=== PATIENT | female | born 1965 | race Caucasian/White ===

== ENCOUNTER 2016-10-01 19:22 | Emergency (ER) | payer SELFPAY ==
[2016-10-01 19:59] LABS: BASOPHILS 0.9 % (0.0-2.0); EOSINOPHILS 1.5 % (0-7); HEMATOCRIT 38.6 % (36.0-48.0); HEMOGLOBIN 12.9 g/dL (12-16); IMMATURE GRANULOCYTES 0.3 % (0-5); LYMPHOCYTES 40.4 % (15-50); MCH 33.9 pg (26.0-34.0); MCHC 33.4 g/dL (31.0-37.0); MCV 101.6 fL (80.0-100.0); MEAN PLATELET VOLUME 8.9 fL (7.4-10.4); MONOCYTES 6.4 % (2-11); NEUTROPHILS 50.5 % (40-80); PLATELET COUNT 288 10x3/uL (130-400); RDW 14.2 % (11.5-14.5); WBC 7.5 10x3/uL (4.8-10.8)
[2016-10-01 20:07] LABS: INR 1.05 (0.85-1.17); PROTIME 13.6 SECONDS (11.6-15.0)
[2016-10-01 20:11] LABS: ALBUMIN 3.9 g/dL (3.4-5.0); ALKALINE PHOSPHATASE 39 U/L (46-116); ALT (SGPT) 36 U/L (10-68); CALC OSMOLALITY 278 mosm/kg (275-300); CARBON DIOXIDE 24.5 mmol/L (21.0-32.0); CHLORIDE - SERUM 100 mmol/L (98-107); CREATININE - SERUM 0.8 mg/dL (0.6-1.3); GLUCOSE 163 mg/dL (74-106); POTASSIUM - SERUM 3.7 mmol/L (3.5-5.1); PROTEIN - SERUM 7.5 g/dL (6.4-8.2); SODIUM 137 mmol/L (136-145); UREA NITROGEN 15 mg/dL (7-18); eGFR NON AFRICAN AMERICAN 80 mL/min (90-120)
== END 2016-10-02 00:15 | disposition home or self-care (01) ==
LOC: D.ER 19:22
PROVIDERS: Family Medicine
DX: R10.9 Unspecified abdominal pain (principal)

== ENCOUNTER 2017-01-14 18:21 | Emergency (ER) | payer MEDICAID | END 2017-01-14 21:45 | disposition home or self-care (01) | LOC: D.ER 18:21 | DX: S61.452A Open bite of left hand, initial encounter (principal); S61.451A Open bite of right hand, initial encounter; W54.0XXA Bitten by dog, initial encounter; Y93.89 Activity, other specified; Y92.830 Public park as the place of occurrence of the external cause; F17.200 Nicotine dependence, unspecified, uncomplicated ==

== ENCOUNTER 2017-01-17 10:46 | Outpatient (CLI) | payer MEDICAID ==
[2017-01-17] MEDS ORDERED: PRAVACHOL40 MG PO (13:25)
[2017-01-17] MEDS ORDERED: SYNTHROID150 MCG PO (13:25)
[2017-01-17] MEDS ORDERED: XANAX1 MG PO (13:26)
[2017-01-17] MEDS ORDERED: CELEXA40 MG PO (13:26)
[2017-01-17] MEDS ORDERED: MOBIC7.5 MG PO (13:27)
[2017-01-17] MEDS ORDERED: ULTRAM50 MG PO (13:27)
[2017-01-17] MEDS ORDERED: CYCLOBENZAPRINE10 MG PO (13:27)
[2017-01-17 13:35] VITALS: BP 127/82
== END 2017-01-17 12:30 ==
LOC: D.OPS 10:46
DX: Z23 Encounter for immunization (principal); T14.8 Other injury of unspecified body region; W54.0XXA Bitten by dog, initial encounter

== ENCOUNTER 2017-01-21 10:48 | Outpatient (CLI) | payer MEDICAID ==
[~2017-01-21 10:48] MED LIST: CELEXA40 MG PO; CYCLOBENZAPRINE10 MG PO; MOBIC7.5 MG PO; PRAVACHOL40 MG PO; SYNTHROID150 MCG PO; ULTRAM50 MG PO; XANAX1 MG PO
--- NOTE | 2017-01-21 11:04 | NUR ---
PATIENT RECEIVED TO FLOOR FROM ADMISSIONS. A/O X3. NO SIGNS OF DISTRESS NOTED. CALL LIGHT IN REACH.
--- NOTE | 2017-01-21 11:22 | NUR ---
RABIES VACCINE ADMINISTERED PER ORDERS. WELL TOLERATED. D/C TEACHING PROVIDED. STATES UNDERSTANDING. AMBULATED OFF UNIT.
[2017-01-21 11:31] VITALS: Wt 122.5 kg
== END 2017-01-21 11:25 ==
LOC: D.OPS 10:48 → D.MS 10:50 → D.OPS 11:25
DX: Z23 Encounter for immunization (principal); T14.8 Other injury of unspecified body region; W54.0XXA Bitten by dog, initial encounter

== ENCOUNTER 2017-01-28 14:18 | Outpatient (CLI) | payer MEDICAID ==
[2017-01-21 11:31] VITALS: Ht 172.7 cm; Wt 123.0 kg
[~2017-01-28] VITALS: Ht 172.7 cm; Wt 123.0 kg
== END 2017-01-28 15:10 | disposition home or self-care (01) ==
LOC: D.OPS 14:18 → D.MS 14:19 → D.OPS 15:10
DX: Z23 Encounter for immunization (principal)

== ENCOUNTER 2017-08-16 21:35 | Emergency (ER) | payer MEDICAID | END 2017-08-16 23:42 | disposition home or self-care (01) | LOC: D.ER 21:35 | DX: S90.01XA Contusion of right ankle, initial encounter (principal); W19.XXXA Unspecified fall, initial encounter; Y93.89 Activity, other specified; Y92.019 Unspecified place in single-family (private) house as the place of occurrence of the external cause ==

== ENCOUNTER 2018-03-03 18:59 | Emergency (ER) | payer MEDICAID ==
[~2018-03-03] VITALS: Ht 172.7 cm; Wt 136.1 kg
[2018-03-03 19:09] VITALS: Ht 172.7 cm; Wt 136.1 kg
[2018-03-03] MEDS ORDERED: KLONOPIN1 MG (19:10)
[2018-03-03] MEDS ORDERED: ABILIFY2 MG (19:10)
[2018-03-03] MEDS ORDERED: BUPROPION HCL100 MG (19:10)
[2018-03-03] MEDS ORDERED: TORADOL10 MG PO (20:13)
[2018-03-03 20:25] VITALS: BP 132/69
== END 2018-03-03 20:27 | disposition home or self-care (01) ==
LOC: D.ER 18:59
DX: S40.022A Contusion of left upper arm, initial encounter (principal); W01.0XXA Fall on same level from slipping, tripping and stumbling without subsequent striking against object, initial encounter; Y93.89 Activity, other specified; Y92.019 Unspecified place in single-family (private) house as the place of occurrence of the external cause; F17.200 Nicotine dependence, unspecified, uncomplicated

== ENCOUNTER → 2019-03-04 08:16 | Outpatient (CLI) | payer MEDICAID ==
[~2019-03-04 08:16] MED LIST changes: +ABILIFY2 MG; +BUPROPION HCL100 MG; +KLONOPIN1 MG; +TORADOL10 MG PO
== END | disposition home or self-care (01) ==
LOC: D.NM 08:15
PROVIDERS: ATTEND Clinical Nurse Specialist Family Health
DX: T85.9XXA Unspecified complication of internal prosthetic device, implant and graft, initial encounter (principal); M25.572 Pain in left ankle and joints of left foot

== ENCOUNTER 2019-04-18 22:35 | Emergency (ER) | payer MEDICAID ==
[~2019-04-18] VITALS: Ht 172.7 cm; Wt 131.8 kg
[~2019-04-18 22:35] MED LIST changes: -ABILIFY2 MG; +ABILIFY2 MG PO; -SYNTHROID150 MCG PO; +SYNTHROID175 MCG PO
[2019-04-18 22:42] VITALS: Ht 172.7 cm; Wt 131.8 kg
[2019-04-18] MEDS ORDERED: ZITHROMAX TRI-500 MG PO (23:04)
[2019-04-18] MEDS ORDERED: ALBUTEROL SULF8.5 GM INH (23:04)
[2019-04-18] MEDS ORDERED: MUCINEX DM ER1 EAC1 PO (23:06)
[2019-04-19 00:14] VITALS: BP 117/66
[2019-05-21] MEDS ORDERED: KLONOPIN1 MG PO (08:50)
[2019-05-21] MEDS ORDERED: WELLBUTRIN SR150 MG PO (08:53)
[2019-05-21] MEDS ORDERED: LIPITOR40 MG PO (08:53)
[2019-05-21] MEDS ORDERED: VITAMIN D250000 UNIT PO (08:56)
== END 2019-04-19 00:14 | disposition home or self-care (01) ==
LOC: D.ER 22:35
DX: J20.9 Acute bronchitis, unspecified (principal); J45.909 Unspecified asthma, uncomplicated

== ENCOUNTER 2019-05-22 05:00 | Day surgery (SDC) | payer MEDICAID ==
[2019-04-18 22:42] VITALS: Ht 168.9 cm; Wt 136.1 kg
[2019-05-21 09:35] LABS: HEMATOCRIT 40.4 % (36.0-48.0); MCH 33.3 pg (26.0-34.0); MCHC 34.7 g/dL (31.0-37.0); MEAN PLATELET VOLUME 9.4 fL (7.4-10.4); RBC 4.21 10x6/uL (4.00-5.40); RDW 14.5 % (11.5-14.5); WBC 6.8 10x3/uL (4.8-10.8)
[~2019-05-22] VITALS: Ht 168.9 cm; Wt 136.1 kg
[~2019-05-22 05:00] MED LIST changes: +ALBUTEROL SULF8.5 GM INH; +KLONOPIN1 MG PO; +LIPITOR40 MG PO; +MUCINEX DM ER1 EAC1 PO; +VITAMIN D250000 UNIT PO; +WELLBUTRIN SR150 MG PO; +ZITHROMAX TRI-500 MG PO
[2019-05-22 05:45] LABS: HCG URINE NEGATIVE (NEGATIVE)
[2019-05-22 05:50] VITALS: BP 128/73; BMI 47.8
--- NOTE | 2019-05-22 08:28 | NUR ---
PT ARRIVED VIA STRETCHER. AOX4. LLE ELEVATED AND ICE APPLIED. VSS. WILL CONTINUE TO MONITOR.
--- NOTE | 2019-05-22 10:07 | OP ---
PATIENT NAME: ADRIENNE RO MEDICAL RECORD: [id number] :65 LOCATION:D.OPS ADMISSION DATE: SURGEON: AUDREY JACKSON DPM DATE OF OPERATION: 05/22/2019 PREOPERATIVE DIAGNOSES: 1. Left ankle arthritis and capsulitis. 2. Left ATFL rupture. POSTOPERATIVE DIAGNOSES: 1. Left ankle arthritis and capsulitis. 2. Left ATFL rupture. 3. Chondromalacia, left ankle. PROCEDURES: 1. Left ankle arthroscopy with extensive debridement. 2. Left ATFL repair. ANESTHESIA: General with local infiltrate utilizing lidocaine and Marcaine plain, 20 cc total, left ankle. HEMOSTASIS: Left thigh tourniquet at 350 mmHg. PREOPERATIVE DETAILS: Left ankle arthroscopy with extensive debridement: The patient was taken to the OR and placed on the operating table in a supine position followed by induction of general anesthesia and infiltration of local anesthetic. The left extremity was then prepped and draped in usual aseptic technique, followed by exsanguination and inflation of tourniquet. A 15-blade was used to create 2 small stab incisions over the medial anterior shoulder as well as the lateral anterior shoulder of the ankle. Incisions were deepened down bluntly with a mosquito hemostat. The joint capsule was punctured. The camera was introduced in the lateral portal with the synovial shaver introduced in the medial portal. Upon initial inspection, there was noted to be significant chondromalacia on the anterior distal tip of the talus. The cartilage seemed to be in good repair. There was some capsulitis noted anterolaterally. The synovial shaver was used to remove the chondromalacia, which came off quite easily. The capsule was also debrided. The portals were switched. The camera introduced medially and the synovial shaver laterally. The continued debridement of the chondromalacia in the distal anterior tibia was continued as well as the hypertrophied capsule. The superior anterior talofibular ligament was intact, somewhat frayed, but intact. Upon stressing the ankle under visualization, there was noted to be very little talar tilt, but there was anterior drawer sign positive. The camera and synovial shaver were removed. ATFL repair: The lateral incision was extended distally and around the distal tip of the fibula. The incision was deepened down through subcutaneous tissue to the joint capsule. It was incised with 15-blade. There was noted to be attenuation or interruption of the ATFL. At this time, utilizing the internal brace system, an anchor was placed in the talus as well as the internal brace threaded through the implant into the fibula. Once it was placed under proper physiological tension, there was excellent reduction of both any talar tilt, which was about 15 degrees as well as anterior drawer. At this time, utilizing a FiberWire, there was a Brostrom that was performed over the top of the internal brace securing the ruptured ATFL as well as performing a modified OPERATIVE REPORT [id number] ADRIENNE RO of the lateral joint capsule. The wound was flushed. The incision deep tissue was reapproximated with 2-0 Vicryl and the subcutaneous tissue was reapproximated with 4-0 Rapide, and the skin was closed with 4-0 Rapide in a subcuticular technique, followed by Dermabond. The anterior medial and stab incision was also repaired with 4-0 Rapide in a simple interrupted technique. Adaptic, 4 x 4, and Conform were used to dress the wound, followed by application of a modified Leong compression dressing. The tourniquet was deflated. POSTOPERATIVE DETAILS: The patient tolerated the procedure well and left the OR with vital signs stable and vascular status at preoperative levels. The patient was transported to recovery per anesthesia in stable condition. TRANSINT:[id number] Voice Confirmation ID: [id number] DOCUMENT ID: [id number] AUDREY JACKSON DPM at 1007 CC: [id number] DICTATION DATE: 05/22/19819 SKIING TEACHER: 05/22/19918 [facility] [address] [place] [address]
== END 2019-05-22 10:00 | disposition home or self-care (01) ==
LOC: D.OPS 05:00 → D.PAN 07:00 → D.OPS 10:00
PROVIDERS: Anesthesiology; ATTEND Podiatrist
DX: M19.072 Primary osteoarthritis, left ankle and foot (principal); M77.52 Other enthesopathy of left foot and ankle; M94.272 Chondromalacia, left ankle and joints of left foot

== ENCOUNTER → 2019-09-25 18:06 | Outpatient (CLI) | payer MEDICAID | END | disposition home or self-care (01) | LOC: D.LABREF 18:06 | PROVIDERS: ATTEND Orthopaedic Surgery | DX: M17.12 Unilateral primary osteoarthritis, left knee (principal) ==

== ENCOUNTER 2019-10-04 11:50 | Inpatient (IN) | payer MEDICAID ==
[~2019-10-04] VITALS: Ht 170.2 cm; Wt 137.7 kg
[2019-10-22] MEDS ORDERED: PRAVACHOL40 MG PO (14:21)
[2019-10-23 11:16] LABS: BASOPHILS 1.2 % (0-2); EOSINOPHILS 2.5 % (0-7); HEMATOCRIT 43.2 % (36.0-48.0); HEMOGLOBIN 14.3 g/dL (12-16); IMMATURE GRANULOCYTES 0.3 % (0-5); LYMPHOCYTES 30.2 % (15-50); MCH 31.7 pg (26.0-34.0); MCHC 33.1 g/dL (31.0-37.0); MCV 95.8 fL (80.0-100.0); MONOCYTES 6.7 % (2-11); NEUTROPHILS 59.1 % (40-80); PLATELET COUNT 293 10x3/uL (130-400); RBC 4.51 10x6/uL (4.00-5.40); RDW 14.7 % (11.5-14.5); WBC 6.9 10x3/uL (4.8-10.8)
[2019-10-23 11:28] LABS: APTT 30.1 SECONDS (22.8-39.4); INR 0.88 (0.85-1.17); PROTIME 11.9 SECONDS (11.6-15.0)
[2019-10-23 11:37] LABS: ANION GAP 10.6 mmol/L (8-16); CARBON DIOXIDE 30.5 mmol/L (21.0-32.0); CREATININE - SERUM 0.9 mg/dL (0.6-1.3); POTASSIUM - SERUM 4.1 mmol/L (3.5-5.1)
[2019-10-23 11:55] LABS: BILIRUBIN NEGATIVE (NEGATIVE); GLUCOSE NEGATIVE (NEGATIVE); KETONE NEGATIVE (NEGATIVE); NITRITE NEGATIVE (NEGATIVE); UROBILINOGEN NORMAL (NORMAL)
[2019-10-28] VITALS (13 sets, daily range): BP systolic 107–132; BP diastolic 59–86; Ht 170.2 cm; Wt 137.7 kg
[2019-10-28 07:04] LABS: HCG URINE NEGATIVE (NEGATIVE)
--- NOTE | 2019-10-28 09:30 | NUR ---
PATIENT TO ROOM AT THIS TIME WITH VS STABLE. NO COMPLAINTS OR SIGNS OF DISTRESS. IV INTACT. SCD ON LLE AND WORKING. TEDS ORDERED FROM [facility]. IS GIVEN TO PATIENT AND TAUGHT HOW TO USE. PATIENT DEMONSTRATED BACK WITH NO PROBLEMS. DRESSING CDI. ICE TO KNEE. FAMILY AT BEDSIDE. CALL LIGHT WITHIN REACH.
--- NOTE | 2019-10-28 10:44 | OP ---
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 POSTOPERATIVE DIAGNOSIS: Left knee pain status post total knee arthroplasty. PROCEDURE: Revision total knee arthroplasty, polyethylene only left knee, synovectomy. SURGEON: Ketty Estrella MD MGMT CONSULTANT: LILY Vernon INTRAOPERATIVE COMPLICATIONS: None. SUMMARY OF PATHOLOGIC FINDINGS: The patient had severe synovitis in the entire knee. The polyethylene that was extracted had christiano and grooves on the poly surface consistent with premature breakdown and polyethylene synovitis. The synovium was sent to the pathologist for further evaluation. The polyethylene extracted with a size 11, polyethylene placed back was a size 13. OPERATIVE SUMMARY IN DETAIL: After obtaining the appropriate preoperative orthopedic surgery consent as well as anesthetic consultation, evaluation and clearance, the patient was brought to the operating room and placed on the operating table in supine position. After general laryngeal mask airway was administered, tourniquet was placed on the proximal aspect of left lower extremity. Left lower extremity was then prepped and draped in routine sterile fashion. The leg was elevated and exsanguinated, and tourniquet was inflated to 350 mmHg. Routine incision was made midline with the previous incision, taken down to the level of the paramedian arthrotomy. Paramedian arthrotomy was utilized in the same incision as utilized by the previous surgeon giving the Ethibond suture found. At this point, when the joint was opened, the synovitis was noted with substantial amounts of polyethylene flowing fourth. Synovitis was then removed in its entirety medially, laterally, superiorly and inferiorly. The entire synovectomy was performed. The synovium was sent for permanent pathology specimen. At this point, the polyethylene was removed from the Lexi Persona knee. It was evaluated on the back table and it was found to have christiano and grooves as noted above consistent with premature polyethylene degradation. The wound was then copiously irrigated using a pulsatile lavage industrial machine system technician. All synovium that was found to have synovitis was removed. New polyethylene size 13 was placed after trials were undertaken. This did result in the patient to have better stability medially and laterally in extension as well as anterior and posteriorly in flexion. Having completed this, wound was again irrigated. At this point, a gram of vancomycin and a gram of tobramycin were placed in the knee. The paramedian arthrotomy was closed with #2 Ethibond by LILY Vernon, followed by closure of the knee with #1 Vicryl, 2-0 Vicryl and skin nereida. The patient was given a gram of TXA. She was awakened and taken to the recovery room in stable condition. All final needle and sponge counts were correct. TRANSINT:[id number] Voice Confirmation ID: [id number] DOCUMENT ID: [id number] OPERATIVE REPORT [id number] ADRIENNE RO MD, KETTY DENTON at 1044 CC: [id number] DICTATION DATE: 10/28/19 0844 MOLD SHAKER: 10/28/19 1039 ADM IN [facility] [address] [place] [id number]
--- NOTE | 2019-10-28 11:16 | NUR ---
PATIENT IN BED SLEEOING AT THIS TIME. FAMILY AT BEDSIDE. CALL LIGHT WITHIN REACH. FAMILY AT BEDSIDE.
--- NOTE | 2019-10-28 12:55 | NUR ---
PATIENT ATE 100% OF REGULAR DIET. TOLERATED WITH NO N/V. DOROTHY HOSE PLACED ON PATIENT. EXPLAINED LEAVE ON EXCEPT MUST BE REMOVED ONCE A SHIFT. VERBALIZED UNDERSTANDING. IV INTACT. VS STABLE. CALL LIGHT WITHIN REACH. FAMILY AT BEDSIDE.
--- NOTE | 2019-10-28 16:53 | MORECARE ---
CASE MANAGEMENT DISCHARGE SUMMARY PATIENT: LUISANA PIZARRO UNIT: [id number] ADM DATE: 10/28/19 AGE: 53 : 65 SEX: F ROOM/BED: D.1208 AUTHOR: REA FAIRCHILD PHYSICIAN: REFERRING PHYSICIAN: KETTY ESTRELLA MD DATE OF SERVICE: 10/28/19 Discharge Plan Patient Name: LUISANA PIZARRO [facility] [facility] 1965 Planned Disposition: Home Anticipated Discharge Date: 10/29/19 Discharge Date: Expected LOS: 1 Initial Reviewer: [email or web address] Initial Review Date: 10/28/2019 Generated: 10/28/19 5:53 pm Comments DCP- Discharge Planning Updated by [id number]: Nery Perry on 10/28/19 3:[address] CM met with patient to discuss initial discharge planning. Patient is in agreement to proceed with the assessment with her mother present. Patient reports that she lives at home independently with her mother, Ilsa Pizarro #[phone] and plans to return there at time of discharge. . Patient is alert/oriented. Stairs/steps: 2. no rails. PCP: Dr. Johnson. Pharmacy: [facility]. Patient states she has been able to obtain all of her prescribed medications. HHS: No. DME: Manual W/C. Patient gives permission to speak with family members/care givers. Emergency contact: Ilsa Pizarro #[phone]. 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 CM discussed the availability of HH, Rehab, DME services. Patient choses [facility]. Patient Choice signed. Patient denies being hospitalized within the past 30 days. Patient denies the use of community resources CUSTOMER DEVELOPMENT MANAGER. Transportation at time of discharge: A friend will drive her home. CM has set up Outpatient Therapy @[facility], with first appointment Monday. @0900. Patient is to be there @0845 in order to register. Patient provided with copy of appointment. CM contacted Kaycee for home equipment orders and she said the office will order it for patient, ie: CPM, BSC, Walker. DCPIA - Discharge Planning Initial Assessment Updated by [email or web address]: Nery Perry on 10/28/19 4:52 pm * Is the patient Alert and Oriented? Yes * How many steps to enter\exit or inside your home? * PCP Dr. Johnson * [facility]. [facility] * Preadmission Environment Home with Family * ADLs Independent * Equipment Wheelchair * Other Equipment CPM, Walker, BSC is being ordered by Dr. Estrella's office. I spoke with Kaycee roberts same. * List name and contact numbers for known caregivers / representatives who currently or will assist patient after discharge: Ilsa Pizarro (mother) [phone] * Community resources currently utilized None * Please name any agencies selected above. [facility] Appointment: MondayOct 29 @0900, be there @0845 to register. * Additional services required to return to the preadmission environment? No * Can the patient safely return to the preadmission environment? Yes * Has this patient been hospitalized within the prior 30 days at any hospital? No Coverage Notice Reviewer: [id number] - Nery Perry Notice Issued Date-Time: 10/28/2019 16:14 Notice Type: Patient Choice Letter Notice Delivered To: Patient Relationship to Patient: Self Catalogue And Special Products Manager Name: Luisana Pizarro Delivery Method: HAND - Hand Delivered Ankita Days: Prior Verbal Notification: Recipient Understood Notice: Recipient Signature: Yes Med Rec Note Co-signed by Attending: Coverage Notice Comment: Patient Choice Letter for Outpatient PT delivered and signed by patient. Patient Name: LUISANA PIZARRO Page [phone] at 1653 All edits/amendments must be made on the electronic document DICTATION DATE: 10/28/191652 RESPITE PROVIDER: KATHIE 10/28/191652 RPT#: [id number] DC DATE: STATUS: ADM IN [facility] [address] [place] [address] END OF REPORT
--- NOTE | 2019-10-28 17:27 | NUR ---
PATIENT IN BED WITH IV INTACT. NO COMPLAINTS OR SIGNS OF DISTRESS. WOUND VAC CDI. DOROTHY CASAS AND SCD ON. FAMILY AT BEDSIDE. CALL LIGHT WITHIN REACH.
--- NOTE | 2019-10-28 20:00 | NUR ---
PATIENT RESTING IN BED WITH NO S/S OF DISTRESS. GUEST AT BEDSIDE. REPLACED PINK PAD UNDER PATIENT AND BROUGHT HER WATER PER HER REQUEST. VSS. PATIENT DENIES OTHER NEEDS AT THIS TIME. BED IN LOWEST POSITION AND CALL LIGHT WITHIN REACH. ENCOURAGED THE PATIENT TO CALL IF SHE HAS NEEDS. WILL CONTINUE TO MONITOR.
--- NOTE | 2019-10-28 21:04 | NUR ---
ADMINISTERED MEDS PER ORDERS. PATIENT DENIES OTHER NEEDS AT THIS TIME. BED IN LOWEST POSITION AND CALL LIGHT WITHIN REACH. ENCOURAGED THE PATIENT TO CALL IF SHE HAS NEEDS. WILL CONTINUE TO MONITOR.
[2019-10-29 03:41] VITALS: BP 123/81
[2019-10-29 07:27] VITALS: BP 146/77
--- NOTE | 2019-10-29 07:50 | NUR ---
PATIENT IN BED WITH IV INTACT. NO COMPLAINTS OR SIGNS OF DISTRESS. PROVENA WOUND VAC INTACT. HAS 40 ML IN DRAINAGE CARTRIDGE FROM YESTERDAY AFTER OR AND OVERNIGHT. BSCDS ON. DOROTHY ON RIGHT LEG. CALL LIGHT WITHIN REACH.
[2019-10-29 07:51] LABS: HEMATOCRIT 39.9 % (36.0-48.0); HEMOGLOBIN 13.1 g/dL (12-16); MCH 31.5 pg (26.0-34.0); MCHC 32.8 g/dL (31.0-37.0); MCV 95.9 fL (80.0-100.0); MEAN PLATELET VOLUME 9.1 fL (7.4-10.4); RBC 4.16 10x6/uL (4.00-5.40); RDW 14.5 % (11.5-14.5); WBC 10.1 10x3/uL (4.8-10.8)
--- NOTE | 2019-10-29 09:30 | NUR ---
PATIENT WOUND VAC CARTRIDGE CHANGED PER FERNANDO SERRANO. PATIENT HAS NO COMPLAINTS OR SIGNS OF DISTRESS AT THIS TIME. UP TO CHAIR PER PT. CALL LIGTH WITHIN REACH.
[2019-10-29 12:30] VITALS: BP 107/56
--- NOTE | 2019-10-29 14:00 | NUR ---
PATIENT BACK TO BED WITH IV INTACT. NO COMPLAINTS OR SIGNS OF DISTRESS. CALL LIGHT WITHIN REACH.
[2019-10-29 17:10] VITALS: BP 105/59; BP 138/67
--- NOTE | 2019-10-29 17:29 | NUR ---
PATIENT UP IN WC WITH MOM IN HALLWAYS AT THIS TIME. WOUND VAC AND IV INTACT. CALL LIGHT WITHIN REACH. PATIENT WOUND VAC PUTTING OUT VERY SMALL AMOUNT OF RED DRAINAGE.
--- NOTE | 2019-10-29 19:53 | NUR ---
PATIENT RESTING IN BED WITH NO S/S OF DISTRESS/ GUEST AT BEDSIDE. PATIENT DENIES NEEDS AT THIS TIME. BED IN LOWEST POSITION AND CALL LIGHT WITHIN REACH. ENCOURAGED THE PATIENT TO CALL IF SHE HAS NEEDS. WILL CONTINUE TO MONITOR.
[2019-10-29 20:15] VITALS: BP 113/67; BP 150/73
--- NOTE | 2019-10-29 21:35 | NUR ---
CPM MACHINE OFF
--- NOTE | 2019-10-29 21:51 | NUR ---
ADMINISTERED MEDS PER ORDERS. PATIENT DENIES OTHER NEEDS AT THIS TIME. WILL CONTINUE TO MONITOR.
[2019-10-30] VITALS: BP 113/71
[2019-10-30 03:36] VITALS: BP 111/72
--- NOTE | 2019-10-30 03:36 | NUR ---
PT SALES PROJECT ENGINEER LIGHT, PT UP TO BR, GAIT STEADY, VOIDED BY SELF WITH NO DIFFICULTY, PT BACK TO BED, VS OBTAINED, C/O PAIN, OSMANY, RN ADM PAIN MED, BED IN LOW POSITION, SIDE RAILS X 2, CALL LIGHT IN REACH
--- NOTE | 2019-10-30 05:16 | NUR ---
PLACED PATIENT ON CPM TO LEFT KNEE
--- NOTE | 2019-10-30 07:10 | NUR ---
REC'D PT LAYING IN BED WITH EYES CLOSED. NO ACUTE DISTRESS NOTED. PT DID NOT C/O OF PAIN. DOROTHY HOSE IN PLACE. PROVERA WOUND VAC IN INTACT AND ACTIVE. WILL CONT PLAN OF CARE.
[2019-10-30 07:19] LABS: HEMATOCRIT 39.6 % (36.0-48.0); HEMOGLOBIN 12.8 g/dL (12-16); MCH 31.5 pg (26.0-34.0); MCHC 32.3 g/dL (31.0-37.0); MCV 97.5 fL (80.0-100.0); MEAN PLATELET VOLUME 9.2 fL (7.4-10.4); RBC 4.06 10x6/uL (4.00-5.40); WBC 7.5 10x3/uL (4.8-10.8)
--- NOTE | 2019-10-30 07:45 | NUR ---
ASSISTED PATIENT TO BATHROOM. REMOVED CPM FOR PATIENT TO GET UP. TOLERATED WELL. AMBULATED WITH WALKER TO RESTROOM. VOIDED. AMBUALTED BACK TO BED. NO C/O OF PAIN VOICED. PLACED CPM BACK IN AND PLACE.
[2019-10-30 09:22] VITALS: BP 114/62
--- NOTE | 2019-10-30 09:43 | NUR ---
CMP REMOVED AT 0820 TO ASSIST PATIENT TO THE RESTROOM. REMOVED PER ORDER. PT TOLERATED WELL.
[2019-10-30] MEDS ORDERED: HYDROCODON-ACE1 EA10 PO (10:28)
[2019-10-30] MEDS ORDERED: ELIQUIS2.5 MG PO (10:28)
--- NOTE | 2019-10-30 10:33 | NUR ---
PT MOM REQUESTED INFORMATION ABOUT THINGS THAT WOULD BE GOING HOME WITH HER FOR DISCHARGE. NURSES EXPLAINED THAT CASE MANAGEMENT WOULD COME SPEAK WITH THEM ABOUT SETTING UP FOR HOME DISCHARGE AND WHAT TO HAVE DELIVERED. SHE VERBALIZIED UNDERSTANDING.
--- NOTE | 2019-10-30 13:28 | MORECARE ---
CASE MANAGEMENT DISCHARGE SUMMARY PATIENT: LUISANA PIZARRO UNIT: [id number] ADM DATE: 10/28/19 AGE: 53 : 65 SEX: F ROOM/BED: D.1208 AUTHOR: REA FAIRCHILD PHYSICIAN: REFERRING PHYSICIAN: KETTY ESTRELLA MD DATE OF SERVICE: 10/30/19 Discharge Plan Patient Name: LUISANA PIZARRO [facility] [facility] 1965 Planned Disposition: Home Anticipated Discharge Date: 10/29/19 Discharge Date: Expected LOS: 1 Initial Reviewer: [email or web address] Initial Review Date: 10/28/2019 Generated: 10/30/19 2:28 pm Comments DCP- Discharge Planning Updated by [email or web address]: Nery Perry on 10/30/19 12:[address] CM spoke with Luis Alberto, [facility] and rescheduled the OP appointment for 10/31, 0900. Nurse and patient are aware. DCP- Discharge Planning Updated by [email or web address]: Nery Perry on 10/28/19 3:[address] CM met with patient to discuss initial discharge planning. Patient is in agreement to proceed with the assessment with her mother present. Patient reports that she lives at home independently with her mother, Ilsa Pizarro #[phone] and plans to return there at time of discharge. . Patient is alert/oriented. Stairs/steps: 2. no rails. PCP: Dr. Johnson. [facility]acy[facility]. Patient states she has been able to obtain all of her prescribed medications. HHS: No. DME: Manual W/C. Patient gives permission to speak with family members/care givers. Emergency contact: Ilsa Pizarro #[phone]. 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 CM discussed the availability of HH, Rehab, DME services. Patient choses [facility]. Patient Choice signed. Patient denies being hospitalized within the past 30 days. 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 Transportation at time of discharge: A friend will drive her home. CM has set up Outpatient Therapy [facility], with first appointment Monday @0900. Patient is to be there @0845 in order to register. Patient provided with copy of appointment. WANG contacted Kaycee for home equipment orders and she said the office will order it for patient, ie: CPM, BSC, Walker. DCPIA - Discharge Planning Initial Assessment Updated by [email or web address]: Nery Perry on 10/28/19 4:52 pm * Is the patient Alert and Oriented? Yes * How many steps to enter\exit or inside your home? * PCP Dr. Johnson * Pharmacy [facility]. [facility] * Preadmission Environment Home with Family * ADLs Independent * Equipment Wheelchair * Other Equipment CPM, Walker, BSC is being ordered by Dr. Estrella's office. I spoke with Kaycee regarding same. * List name and contact numbers for known caregivers / representatives who currently or will assist patient after discharge: Ilsa Pizarro (mother) [phone] * Community resources currently utilized None * Please name any agencies selected above. [facility] Appointment: MondayOct 29 @0900, be there @0845 to register. * Additional services required to return to the preadmission environment? No * Can the patient safely return to the preadmission environment? Yes * Has this patient been hospitalized within the prior 30 days at any hospital? No Coverage Notice Reviewer: [id number] - Nery Perry Notice Issued Date-Time: 10/28/2019 16:14 Notice Type: Patient Choice Letter Notice Delivered To: Patient Relationship to Patient: Self Tractor Sweeper Operator Name: Luisana Pizarro Delivery Method: HAND - Hand Delivered Ankita Days: Prior Verbal Notification: Recipient Understood Notice: Recipient Signature: Yes Med Rec Note Co-signed by Attending: Coverage Notice Comment: Patient Choice Letter for Outpatient PT delivered and signed by patient. Last DP export: 10/28/19 3:53 p Patient Name: LUISANA PIZARRO Page [phone] at 1328 All edits/amendments must be made on the electronic document DICTATION DATE: 10/30/19 1328 UTILIZATION MANAGER: KATHIE 10/30/19 1328 RPT#: [id number] DC DATE: STATUS: ADM IN [facility] [address] [place] [address] END OF REPORT
--- NOTE | 2019-10-30 13:57 | NUR ---
THIS NURSE WENT OVER DISCHARGE INSTRUCTIONS WITH PATIENT. WHEN APPOINTMENTS ARE SET SUCH 10/31/2019 AND 11/04/2019 FOR FOLLOW UPS. POST-OP INSTRUCTIONS READ OVER AND COPY GIVEN TO PATIENT. PATIENT VERBALIZIED UNDERSTANDING OF INSTRUCTIONS.
--- NOTE | 2019-10-30 15:00 | NUR ---
PATIENT DISCHARGED HOME. PATIENT WAS STABLE AT TIME OF DISCHARGE. PT NEW PREVENA ATTACHED AND 2X EXTRA CANISTER SENT WITH PT. NURSE REMOVED XIMENA BANDAGE. PATIENT AWARE OF UPCOMING APPTS. NURSE WHEELED PT OUT IN A W/C AND ASSISTED INTO VEHICLE. PT TOLERATED VERY WELL. NO C/O OF PAIN VOICED. PT PACKED ALL BELONGINGS.
--- NOTE | 2019-10-31 08:58 | MORECARE ---
CASE MANAGEMENT DISCHARGE SUMMARY PATIENT: LUISANA PIZARRO UNIT: [id number] ADM DATE: 10/28/19 AGE: 53 : 65 SEX: F ROOM/BED: D.1208 AUTHOR: GURINDER,DOC PHYSICIAN: REFERRING PHYSICIAN: KETTY ESTRELLA MD DATE OF SERVICE: 10/31/19 Discharge Plan Patient Name: LUISANA [facility]ARRO [facility] [facility] 1965 Planned Disposition: Home Anticipated Discharge Date: 10/29/19 Discharge Date: 10/30/2019 Expected LOS: 1 Initial Reviewer: [email or web address] Initial Review Date: 10/28/2019 Generated: 10/31/19 9:57 am Comments DCP- Discharge Planning Updated by [email or web address]: Nery Perry on 10/30/19 12:[address] CM spoke with Luis Alberto, [facility] and rescheduled the OP appointment for 10/31, 0900. Nurse and patient are aware. DCP- Discharge Planning Updated by [email or web address]: Nery Perry on 10/28/19 3:[address] CM met with patient to discuss initial discharge planning. Patient is in agreement to proceed with the assessment with her mother present. Patient reports that she lives at home independently with her mother, Ilsa Pizarro #[phone] and plans to return there at time of discharge. . Patient is alert/oriented. Stairs/steps: 2. no rails. PCP: Dr. Johnson. Pharmacy: [facility]. Patient states she has been able to obtain all of her prescribed medications. HHS: No. DME: Manual W/C. Patient gives permission to speak with family members/care givers. Emergency contact: Ilsa Pizarro #[phone]. 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 CM discussed the availability of HH, Rehab, DME services. Patient choses [facility]. Patient Choice signed. Patient denies being hospitalized within the past 30 days. 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 Transportation at time of discharge: A friend will drive her home. CM has set up Outpatient Therapy @[facility], with first appointment Monday. @0900. Patient is to be there @0845 in order to register. Patient provided with copy of appointment. WANG contacted Kaycee for home equipment orders and she said the office will order it for patient, ie: CPM, BSC, Walker. DCPIA - Discharge Planning Initial Assessment Updated by [email or web address]: Nery Perry on 10/28/19 4:52 pm * Is the patient Alert and Oriented? Yes * How many steps to enter\exit or inside your home? * PCP Dr. Johnson * Pharmacy [facility]. [facility] * Preadmission Environment Home with Family * ADLs Independent * Equipment Wheelchair * Other Equipment CPM, Walker, BSC is being ordered by Dr. Estrella's office. I spoke with Kaycee regarding same. * List name and contact numbers for known caregivers / representatives who currently or will assist patient after discharge: Ilsa Pizarro (mother) [phone] * Community resources currently utilized None * Please name any agencies selected above. [facility] Outpatient Therapy Appointment: MondayOct 29 @0900, be there @0845 to register. * Additional services required to return to the preadmission environment? No * Can the patient safely return to the preadmission environment? Yes * Has this patient been hospitalized within the prior 30 days at any hospital? No Coverage Notice Reviewer: [email or web address] - Nery Perry Notice Issued Date-Time: 10/28/2019 16:14 Notice Type: Patient Choice Letter Notice Delivered To: Patient Relationship to Patient: Self Zookeeper Name: Luisana Pizarro Delivery Method: HAND - Hand Delivered Ankita Days: Prior Verbal Notification: Recipient Understood Notice: Recipient Signature: Yes Med Rec Note Co-signed by Attending: Coverage Notice Comment: Patient Choice Letter for Outpatient PT delivered and signed by patient. Last DP export: 10/30/19 12:28 p Patient Name: LUISANA PIZARRO Page [id number] at 0858 All edits/amendments must be made on the electronic document DICTATION DATE: 10/31/19856 PEDIATRIC DENTIST: KATHIE 10/31/1957 RPT#: [id number] DC DATE:10/30/19 STATUS: DIS IN [facility] [address] [place] [address] END OF REPORT
== END 2019-10-30 15:06 | disposition home or self-care (01) | DRG 468 ==
LOC: D.SDCHOLD 10-23 10:00 → D.M3 10-28 09:32 → D.SDCHOLD 10-28 10:00 → D.M3 10-30 15:06
PROVIDERS: ADMIT Orthopaedic Surgery; ATTEND Orthopaedic Surgery
PROC: 0SRD0JZ Replacement of Left Knee Joint with Synthetic Substitute, Open Approach (ICD-10-PCS; 2019-10-28)
PROC: 0SPD0JZ Removal of Synthetic Substitute from Left Knee Joint, Open Approach (ICD-10-PCS; principal; 2019-10-28 07:45)
DX: T84.84XA Pain due to internal orthopedic prosthetic devices, implants and grafts, initial encounter (principal); X58.XXXA Exposure to other specified factors, initial encounter; E78.5 Hyperlipidemia, unspecified; F17.200 Nicotine dependence, unspecified, uncomplicated

== ENCOUNTER → 2020-05-06 17:11 | Outpatient (CLI) | payer MEDICAID ==
[2019-10-28 09:55] VITALS: BMI 47.6
[~2020-05-06 17:11] MED LIST changes: +ELIQUIS2.5 MG PO; +HYDROCODON-ACE1 EA10 PO
[2020-05-06 21:18] LABS: ERYTHROCYTE SEDIMENTATION RATE 14 mm/hr (0-30)
[2020-05-06 21:21] LABS: HEMATOCRIT 45.5 % (36.0-48.0); HEMOGLOBIN 14.9 g/dL (12-16); LYMPHOCYTES 33.2 % (15-50); MCHC 32.7 g/dL (31.0-37.0); MCV 94.8 fL (80.0-100.0); NEUTROPHILS 56.4 % (40-80); RDW 14.8 % (11.5-14.5); WBC 7.3 10x3/uL (4.8-10.8)
[2020-05-06 21:36] LABS: PLATELET COUNT 313 10x3/uL (130-400)
== END | disposition home or self-care (01) ==
LOC: D.LABREF 17:11
PROVIDERS: ATTEND Orthopaedic Surgery
DX: M25.562 Pain in left knee (principal)

== ENCOUNTER → 2020-11-20 09:51 | Outpatient (CLI) | payer BC ==
[2019-10-28 09:55] VITALS: BMI 47.6
== END | disposition home or self-care (01) ==
LOC: D.NM 08:15
PROVIDERS: ATTEND Clinical Nurse Specialist Family Health
DX: Z96.652 Presence of left artificial knee joint (principal)

== ENCOUNTER → 2020-11-25 16:47 | Outpatient (CLI) | payer BC ==
[2019-10-28 09:55] VITALS: BMI 47.6
[2020-11-25 18:32] LABS: BASOPHILS 0.9 % (0-2); EOSINOPHILS 3.2 % (0-7); HEMATOCRIT 45.8 % (36.0-48.0); HEMOGLOBIN 15.2 g/dL (12-16); IMMATURE GRANULOCYTES 0.4 % (0-5); LYMPHOCYTE ABS# 2.02 10x3/uL (1.18-3.74); LYMPHOCYTES 29.1 % (15-50); MCH 31.6 pg (26.0-34.0); MCHC 33.2 g/dL (31.0-37.0); MCV 95.2 fL (80.0-100.0); MEAN PLATELET VOLUME 9.8 fL (7.4-10.4); MONOCYTES 5.6 % (2-11); NEUTROPHIL ABS# 4.22 10x3/uL (1.56-6.13); NEUTROPHILS 60.8 % (40-80); PLATELET COUNT 340 10x3/uL (130-400); RBC 4.81 10x6/uL (4.00-5.40); RDW 14.9 % (11.5-14.5); WBC 6.9 10x3/uL (4.8-10.8)
[2020-11-25 19:30] LABS: ERYTHROCYTE SEDIMENTATION RATE 5 mm/hr (0-30)
== END | disposition home or self-care (01) ==
LOC: D.LABREF 16:47
PROVIDERS: ATTEND Clinical Nurse Specialist Family Health
DX: M25.562 Pain in left knee (principal)

== ENCOUNTER 2020-12-04 12:22 | Inpatient (IN) | payer BC ==
[~2020-12-04] VITALS: Ht 170.2 cm; Wt 137.4 kg
--- NOTE | ~2020-12-04 | OP ---
PATIENT NAME: ADRIENNE PIZARRO MEDICAL RECORD: [id number] :65 LOCATION:D. D.1208 ADMISSION DATE:12/21/20 SURGEON: TIFFANIE OSWALD MD DATE OF OPERATION: 12/21/2020 PREOPERATIVE DIAGNOSES: 1. Painful left total knee arthroplasty. 2. Hardware failure, left total knee. POSTOPERATIVE DIAGNOSES: 1. Painful left total knee arthroplasty. 2. Hardware failure, left total knee. PROCEDURE PERFORMED: 1. Removal of components, left knee. 2. Revision left total knee arthroplasty. INDICATIONS FOR THE PROCEDURE: Ms. Pizarro is a 55-year-old female with history of left total knee arthroplasty in 2013 when she was living in [place]. She did well for several years, but started having more pain. She underwent polyethylene swab last year per Dr. Mcfarland, she was still having pain and instability in the knee. X-rays show evidence of posterior collapse of the tibial component. Preoperative workup was completed that showed loosening of the tibial component and there did not appear to be any infection. Decision was made to proceed with surgery for a revision left total knee arthroplasty. Risks, benefits and alternatives of surgery were discussed with the patient and consent was obtained. DESCRIPTION OF THE PROCEDURE: The patient was met in the holding area where her identity and confirmation of procedure was performed. Left lower extremity was marked. She was taken to the operating room where she was placed supine on the operating table, and anesthesia was administered, tourniquet was applied to the left thigh and left leg was prepped and draped in a sterile fashion. The patient received preoperative antibiotics as well as TXA and a timeout was performed before initiating the case. On initiation of the case, leg was exsanguinated and the tourniquet was raised. Total tourniquet time was 131 minutes. We were down for 16 minutes and then up again for 66 minutes. The knee was placed into flexion and then incision was made over the anterior knee excising the old scar. I dissected down to the extensor mechanism. The quad tendon was then split along its medial border curving medially around the patella continuing down the medial border of the patellar tendon. Old Ethibond suture was identified and removed with a rongeur. The knee was then taken into extension and there was noted to be extensive synovitis throughout the knee. Complete synovectomy was performed. Flap tissue was elevated off the medial tibial plateau and the patellar tendon was released posteriorly along its insertion to translate the patella laterally for the procedure. Once the debridement was completed and the releases were performed, the knee was repositioned in flexion with the patella translated laterally. We then began removal of the components. A thin saw was used under the femoral component around the edges and then we used thin osteotomes to assist with removal. Once we completed the release with the osteotomes, a tamp was used to remove the femur. We were able to remove the femur without any significant bone loss. We then turned to the tibia. A PCL retractor was placed and the tibial component was loose and pushed down posteriorly. It was able to be easily removed with the osteotome. Cement from around the tibia and into the tibial shaft was OPERATIVE REPORT [id number] ADRIENNE PIZARRO removed with osteotomes and curettes. Excess cement around the femur was also debrided. The bony ends were debrided with a curette and rongeur. There was noted to be significant metalosis throughout the knee. There were softening of the bone in the central and posterior aspect of the tibia and some around the femur as well. The knee was irrigated thoroughly with saline. We then began preparation for our final implants starting with the tibia. The tibia was reamed up to a size 17. Our tibial cutting guide was then placed and pinned into position. The instruments were removed and the fresh tibial cut was completed, taking mostly bone off the anterior medial portion of the tibia. We then sized the tibia to a size 5 and adjusted for offset. The tibia was prepared using a reamer and punch. We then turned our attention to the femur. The femur was also sized to a size 5. We reamed up for a stem up to a size 16. Distal femoral cutting block was then pinned into place and our distal femur cut was completed. 4-in-1 block was placed and our anterior, posterior and chamfer cuts were completed offsetting the femur 2 mm anterior. We then placed a guide for our box cut and our box cut was completed. Once the femur was prepared, knee was irrigated thoroughly with saline. Our tibial and femoral trial were placed. We attempted to trial going up to a size 22 poly, but still had quite a bit of looseness in extension. We therefore placed 10 mm distal femoral augments and this provided good stability both in flexion and extension and throughout range of motion. At this point, we had just gone over a hour tourniquet time and the tourniquet was let down for 16 minutes and then reinflated. The trial components were then removed and the knee was irrigated thoroughly with saline. Bony debris was removed from the knee. A joint solution was injected around the capsule of the proximal tibia and the distal femur. Knee was repositioned in flexion. The bony ends were dried. Our final components were cemented into place. The tibia was placed followed by the femur. We then trialed this with the size 19 and 22 poly, felt to have better fit stability with the 22 and our final size 22 posterior stabilized poly was placed and tapped into position. A central peg was placed and also impacted. This was taken through range of motion, had good fit and stability throughout range of motion. The knee was irrigated thoroughly with saline. A drain was placed in lateral gutter. 1 gram of vancomycin was placed into the knee joint. The extensor mechanism was then closed with #1 Vicryl suture. The patella was evaluated during the procedure and noted to be well fixed and was therefore not addressed. The extensor mechanism was then closed with #1 Vicryl suture. Subcutaneous tissue was again irrigated thoroughly with saline. Subcutaneous tissue was closed with 2-0 Vicryl and the skin was closed with nereida. A sterile dressing was placed. The patient was turned back over to anesthesia where she was awakened, extubated, and taken to recovery room in stable condition. POSTOPERATIVE PLAN: The patient is going to be admitted for routine postoperative care. She will receive 24 hours of postoperative antibiotics and will be started on DVT prophylaxis tomorrow. Physical therapy will be consulted to assist with mobilization, weightbearing as tolerated in left lower extremity. PLAN: Home with home health. COMPLICATIONS: None. ESTIMATED BLOOD LOSS: 150 mL. ANESTHESIA: General with peripheral nerve block. OPERATIVE REPORT [id number] ADRIENNE PIZARRO TRANSINT:[id number] Voice Confirmation ID: [id number] DOCUMENT ID: [id number] TIFFANIE OSWALD MD CC: [id number] DICTATION DATE: 12/21/20 1251 PROGRAMMING SPECIALIST: 12/21/20 1548 ADM IN [facility] [address] [place] [address]
[2020-12-17] MEDS ORDERED: NEXLETOL180 MG PO (10:22)
[2020-12-17] MEDS ORDERED: ULTRAM50 MG PO (10:24)
[2020-12-17] MEDS ORDERED: MOBIC7.5 MG PO (10:24)
[2020-12-17] MEDS ORDERED: CLARITIN 10 MG10 MG PO (10:26)
[2020-12-17 11:38] LABS: ANION GAP 9.9 mmol/L (8-16); CALCIUM 9.4 mg/dL (8.5-10.1); CARBON DIOXIDE 30.4 mmol/L (21.0-32.0); CREATININE - SERUM 0.9 mg/dL (0.6-1.3); POTASSIUM - SERUM 4.3 mmol/L (3.5-5.1)
[2020-12-17 11:58] LABS: BILIRUBIN NEGATIVE (NEGATIVE); KETONE NEGATIVE (NEGATIVE); NITRITE NEGATIVE (NEGATIVE); UROBILINOGEN NORMAL mg/dL (< 2)
[2020-12-17 12:00] LABS: APTT 29.5 SECONDS (22.8-39.4); INR 1.03 (0.85-1.17); PROTIME 12.5 SECONDS (11.6-15.0)
[2020-12-17 13:22] LABS: ERYTHROCYTE SEDIMENTATION RATE 8 mm/hr (0-30)
[2020-12-17 13:24] LABS: BASOPHILS 0.9 % (0-2); EOSINOPHILS 2.6 % (0-7); HEMATOCRIT 44.5 % (36.0-48.0); HEMOGLOBIN 14.8 g/dL (12-16); IMMATURE GRANULOCYTES 0.4 % (0-5); LYMPHOCYTES 31.7 % (15-50); MCH 31.5 pg (26.0-34.0); MCHC 33.3 g/dL (31.0-37.0); MCV 94.7 fL (80.0-100.0); MEAN PLATELET VOLUME 9.9 fL (7.4-10.4); MONOCYTES 7.8 % (2-11); NEUTROPHIL ABS# 4.65 10x3/uL (1.56-6.13); NEUTROPHILS 56.6 % (40-80); PLATELET COUNT 342 10x3/uL (130-400); RDW 14.6 % (11.5-14.5); WBC 8.2 10x3/uL (4.8-10.8)
[2020-12-21] VITALS (13 sets, daily range): BP systolic 107–136; BP diastolic 57–84; BMI 48.5; BMI 47.6
[2020-12-21 06:12] LABS: HCG URINE NEGATIVE (NEGATIVE)
--- NOTE | 2020-12-21 12:46 | NUR ---
PT BP ELEVATED. ANESTHESIA ORDER. AT BEDSIDE
--- NOTE | 2020-12-21 13:10 | NUR ---
RECEIVED TO ROOM 1208 VIA BED FROM PACU. A/O X3. MOTHER AT BEDSIDE. SKIN INTACT WITHOUT REDNESS. DENIES NEEDS. DOROTHY/SCD'S IN PLACE. KING PATENT WITH CLEAR YELLOW URINE.
--- NOTE | 2020-12-21 15:00 | NUR ---
RESTING QUIETLY WITH EYES CLOSED. NO NEEDS NOTED.
--- NOTE | 2020-12-21 18:00 | NUR ---
ATTEMPTED TO STAND AT BEDSIDE. BALANCE WAS GOOD BUT LEG IS STILL NUMB AND TINGELING. REPOSITIONED IN BED FOR COMFORT. CPM PLACED TO LEFT LEG. DENIES NEEDS. NO CHANGES NOTED.
[2020-12-22 05:38] VITALS: BP 115/71
--- NOTE | 2020-12-22 06:00 | NUR ---
PLACED PATIENT ON CPM TO RIGHT KNEE. REMOVED KING PER ORDER.
[2020-12-22 07:12] VITALS: BP 116/60
[2020-12-22 07:24] LABS: BASOPHILS 0.5 % (0-2); EOSINOPHILS 0.9 % (0-7); HEMATOCRIT 34.2 % (36.0-48.0); HEMOGLOBIN 11.2 g/dL (12-16); IMMATURE GRANULOCYTES 0.2 % (0-5); LYMPHOCYTE ABS# 2.15 10x3/uL (1.18-3.74); LYMPHOCYTES 21.2 % (15-50); MCHC 32.7 g/dL (31.0-37.0); MCV 94.7 fL (80.0-100.0); MEAN PLATELET VOLUME 9.4 fL (7.4-10.4); MONOCYTES 10.7 % (2-11); NEUTROPHIL ABS# 6.74 10x3/uL (1.56-6.13); NEUTROPHILS 66.5 % (40-80); PLATELET COUNT 275 10x3/uL (130-400); RBC 3.61 10x6/uL (4.00-5.40); RDW 14.8 % (11.5-14.5); WBC 10.1 10x3/uL (4.8-10.8)
[2020-12-22 07:38] LABS: ALKALINE PHOSPHATASE 42 U/L (30-120); ALT (SGPT) 35 U/L (10-68); BILIRUBIN - TOTAL 0.19 mg/dL (0.2-1.3); CALC OSMOLALITY 278 mosm/kg (275-300); CALCIUM 8.2 mg/dL (8.5-10.1); CARBON DIOXIDE 25.7 mmol/L (21.0-32.0); CHLORIDE - SERUM 107 mmol/L (98-107); CREATININE - SERUM 0.7 mg/dL (0.6-1.3); GLUCOSE 99 mg/dL (74-106); POTASSIUM - SERUM 3.8 mmol/L (3.5-5.1); PROTEIN - SERUM 5.6 g/dL (6.4-8.2); SODIUM 141 mmol/L (136-145); UREA NITROGEN 7 mg/dL (7-18); eGFR NON AFRICAN AMERICAN > 90 mL/min (90-120)
[2020-12-22 12:00] VITALS: BP 124/72
[2020-12-22 14:47] VITALS: Ht 170.2 cm; Wt 137.4 kg
--- NOTE | 2020-12-22 14:48 | MORECARE ---
CASE MANAGEMENT DISCHARGE SUMMARY PATIENT: ADRIENNE RO UNIT: [id number] ADM DATE: 12/21/20 AGE: 55 : 65 SEX: F ROOM/BED: D.1208 AUTHOR: REA FAIRCHILD PHYSICIAN: REFERRING PHYSICIAN: TIFFANIE OSWALD MD DATE OF SERVICE: 12/22/20 Case Management Discharge Planning Summary COMMENTS ENTERED DATE: 12/22/20 14:34 CT COMMENT TYPE: Discharge Planning REVIEWER: Taiwo Singh CM met with patient to complete DC plan and to evaluate needs. Patient lives with family and has considerable support. Patient stated that her home is safe and has electricity and running water. Patient stated that the home has 2 steps and she manages them without difficulty. Patient stated that she has no problems paying for medications and she fills her medications at [facility] on [address]. Patient stated that her primary care physician is Dr. Johnson. At discharge, the patient plans to return home and feels this is a safe discharge. CM discussed availability of home health, rehab services, and medical equipment. Patient declined SNF, IPR, and DME. Patient has a walker in her room and stated that she has a bedside commode at home. Patient stated that she wants to use [facility]. Clinical Documents faxed to [facility]. LAYNE signed and placed on chart. Patient voiced no other needs at this time and is satisfied with DC plan. Transportation provider at discharge will be with his brother Jesus. CM will continue to follow and will assist as needed with dc plans/needs. Appended by Taiwo Singh on 12/22/2020 14:44 CDT: Transportation provider at discharge will be with her mother, Ilsa Pizarro, . CM will continue to follow and will assist as needed with dc plans/needs. DCP REVIEW SUMMARY ANTICIPATED D/C DATE: EXPECTED LOS : CASE STATUS: DCP Initiated INITIAL REVIEW: 12/21/2020 INITIAL REVIEWER: Taiwo Singh FINAL DISCHARGE DISPOSITION: : FINAL REVIEWER: FINAL REVIEW DATE: DCP Focus Questions & Answers DCP Evaluation QUESTION: ANSWER Patient's current cognitive status: : *Oriented to person, place, situation, time and present Patient's ability to cope with chronic illness : d. No chronic illness Patient gives permission to discuss discharge plans with: (name, relationship and number) : mother, Ilsa Pizarro, Patient and/or caregiver agree upon recommended discharge plan? : Yes Family / Caregiver's ability to cope with chronic illness: : a. Adequate (ability to meet patient's medical needs, ensures patient attends medical appts.) Family / Caregiver's ability to cope with chronic illness: : a. Adequate (ability to meet patient's medical needs, ensures patient attends medical appts.) Physical Status: : Independent with ADL's Does the patient have the ability to pay for or attain post discharge needs / services? : Yes Functional screen assessment: : Basic needs can adequately be met by self Living Arrangements: : Home with Extended Family Equipment needed for post hospitalization: : None Is there a likelihood that the patient will require additional services to return to the preadmission environment? : No Baseline cognitive status: : *Oriented to person, place, situation, time and present Patient with capacity for self-care or can be cared for in same environment as prior to hospitalization? : Yes Physical environment modification needed / anticipated for discharge: : No Medication Management: : Patient states can read and understand medication labels Medication Management: : Patient states can afford medications Pharmacy name(s): : [facility] Does Patient have transportation to get home and to follow-up medical appointments when discharged from the hospital? : Yes Would patient like to participate in any Care Coordination programs (if applicable): : Not applicable Does the patient have electricity at home? : Yes Does the patient have running water in their house? : Yes Equipment in use: : Walker - Rolling Equipment in use: : Bedside Commode Mental health screen: : No mental health history DCP Re-evaluation QUESTION: ANSWER Would patient like to participate in any Care Coordination programs (if applicable): : Not applicable PATIENT: ADRIENNE RO ENCOUNTER: [id number] MEDICAL RECORD#: [id number] ADMISSION DATE: 12/21/2020 DISCHARGE DATE: ATTENDING MD: AMAURY: AGE: 55 MARITAL STATUS: S DC PLAN ID: [id number] FACILITY: [facility] PRINTED ON: 12/22/20 14:47 CT All edits/amendments must be made on the electronic document DICTATION DATE: 12/22/201446 LEARNING CENTER COORDINATOR: KATHIE 12/22/201446 RPT#: [id number] DC DATE: STATUS: ADM IN [facility] [address] [facility] [place] [address] END OF REPORT
--- NOTE | 2020-12-22 18:22 | MORECARE ---
CASE MANAGEMENT DISCHARGE SUMMARY PATIENT: ADRIENNE RO UNIT: [id number] ADM DATE: 12/21/20 AGE: 55 : 65 SEX: F ROOM/BED: D.1208 AUTHOR: REA FAIRCHILD PHYSICIAN: REFERRING PHYSICIAN: TIFFANIE OSWALD MD DATE OF SERVICE: 12/22/20 Case Management Discharge Planning Summary COMMENTS ENTERED DATE: 12/22/20 14:34 CT COMMENT TYPE: Discharge Planning REVIEWER: Taiwo Singh CM met with patient to complete DC plan and to evaluate needs. Patient lives with family and has considerable support. Patient stated that her home is safe and has electricity and running water. Patient stated that the home has 2 steps and she manages them without difficulty. Patient stated that she has no problems paying for medications and she fills her medications at [facility] on [address]. Patient stated that her primary care physician is Dr. Johnson. At discharge, the patient plans to return home and feels this is a safe discharge. CM discussed availability of home health, rehab services, and medical equipment. Patient declined SNF, IPR, and DME. Patient has a walker in her room and stated that she has a bedside commode at home. Patient stated that she wants to use [facility]. Clinical Documents faxed to [facility]. LAYNE signed and placed on chart. Patient voiced no other needs at this time and is satisfied with DC plan. Transportation provider at discharge will be with his brother Jesus. CM will continue to follow and will assist as needed with dc plans/needs. Appended by Taiwo Singh on 12/22/2020 14:44 CDT: Transportation provider at discharge will be with her mother, Ilsa Pizarro, . CM will continue to follow and will assist as needed with dc plans/needs. DCP REVIEW SUMMARY ANTICIPATED D/C DATE: EXPECTED LOS : CASE STATUS: DCP Initiated INITIAL REVIEW: 12/21/2020 INITIAL REVIEWER: Taiwo Singh FINAL DISCHARGE DISPOSITION: : FINAL REVIEWER: FINAL REVIEW DATE: DCP Focus Questions & Answers DCP Evaluation QUESTION: ANSWER Patient's current cognitive status: : *Oriented to person, place, situation, time and present Patient's ability to cope with chronic illness : d. No chronic illness Patient gives permission to discuss discharge plans with: (name, relationship and number) : motherIlsa, Patient and/or caregiver agree upon recommended discharge plan? : Yes Family / Caregiver's ability to cope with chronic illness: : a. Adequate (ability to meet patient's medical needs, ensures patient attends medical appts.) Family / Caregiver's ability to cope with chronic illness: : a. Adequate (ability to meet patient's medical needs, ensures patient attends medical appts.) Physical Status: : Independent with ADL's Does the patient have the ability to pay for or attain post discharge needs / services? : Yes Functional screen assessment: : Basic needs can adequately be met by self Living Arrangements: : Home with Extended Family Equipment needed for post hospitalization: : None Is there a likelihood that the patient will require additional services to return to the preadmission environment? : No Baseline cognitive status: : *Oriented to person, place, situation, time and present Patient with capacity for self-care or can be cared for in same environment as prior to hospitalization? : Yes Physical environment modification needed / anticipated for discharge: : No Medication Management: : Patient states can read and understand medication labels Medication Management: : Patient states can afford medications Pharmacy name(s): : [facility] Does Patient have transportation to get home and to follow-up medical appointments when discharged from the hospital? : Yes Would patient like to participate in any Care Coordination programs (if applicable): : Not applicable Does the patient have electricity at home? : Yes Does the patient have running water in their house? : Yes Equipment in use: : Walker - Rolling Equipment in use: : Bedside Commode Mental health screen: : No mental health history DCP Re-evaluation QUESTION: ANSWER Would patient like to participate in any Care Coordination programs (if applicable): : Not applicable PATIENT: ADRIENNE RO ENCOUNTER: [id number] MEDICAL RECORD#: [id number] ADMISSION DATE: 12/21/2020 DISCHARGE DATE: ATTENDING MD: AMAURY: AGE: 55 MARITAL STATUS: S DC PLAN ID: [id number] FACILITY: [facility] PRINTED ON: 12/22/20 18:22 CT All edits/amendments must be made on the electronic document DICTATION DATE: 12/22/201821 BLOCKING MACHINE TENDER: KATHIE 12/22/201821 RPT#: [id number] DC DATE: STATUS: ADM IN [facility] [address] [place] [address] END OF REPORT
--- NOTE | 2020-12-22 18:30 | NUR ---
ATE ALL OF SUPPER. PLACED ON CPM AT THIS TIME. DENIES NEEDS. NO CHANGES NOTED.
--- NOTE | 2020-12-22 19:25 | NUR ---
PT RESTING, LEFT KNEE IN CPM AT THIS TIME, INFORMED PT THAT I WILL BE BACK SHORTLY TO DO ASSESSMENT, PT VERBALIZES UNDERSTANDING, DENIES NEEDS AT THIS TIME, PT'S MOM AT BEDSIDE
[2020-12-22 20:30] VITALS: BP 137/66
--- NOTE | 2020-12-22 20:30 | NUR ---
ASSESSMENT PER FLOW SHEET, VS OBTAINED, SALINE LOCK TO RIGHT WRIST INTACT WITH NO REDNESS OR EDEMA, LEFT KNEE REMOVED FROM CPM, DRESSING CDI, PT REPORTS FLATUS, NO BM, AND VOIDING WITH NO DIFFICULTY, PT INST TO USE CALL LIGHT FOR ANY ASSISTANCE, VERBALIZES UNDERSTANDING, DOROTHY CASAS AND SCD'S ON, WORKING PROPERLY, PT REQUESTS PAIN PILL WHEN I RETURN WITH 9PM MEDS, FRESH H20 SERVED, DENIES FURTHER NEEDS, PT'S MOM ASLEEP AT BEDSIDE
--- NOTE | 2020-12-22 21:42 | NUR ---
PT AROUSES TO OPENING OF DOOR, ADM 2100 MEDS AND PAIN MED PER MD ORDERS, SEE EMAR, PT DENIES FURTHER NEEDS
--- NOTE | 2020-12-22 22:30 | NUR ---
PT RESTING WITH EYES CLOSED, RESP QUIET, NO DISTRESS NOTED, LEFT UNDISTURBED AT THIS TIME, BED IN LOW POSITION, SIDE RAILS X 2, CALL LIGHT IN REACH, PT'S MOM ASLEEP AT BEDSIDE
--- NOTE | 2020-12-23 00:13 | NUR ---
PT RESTING WITH EYES CLOSED, RESP QUIET, NO DISTRESS NOTED, LEFT UNDISTURBED AT THIS TIME, PT'S MOM ASLEEP AT BEDSIDE
--- NOTE | 2020-12-23 02:25 | NUR ---
PT RESTING WITH EYES CLOSED, RESP QUIET, NO DISTRESS NOTED, LEFT UNDISTURBED AT THIS TIME, PT'S MOM AWAKE AT BEDSIDE
--- NOTE | 2020-12-23 04:45 | NUR ---
PT RESTING WITH EYES CLOSED, AROUSES TO SOFT VERBAL STIMULATION, VS OBTAINED, PT RATES PAIN 1/10, DENIES NEED FOR PAIN MED AT THIS TIME, PT'S MOM AT BEDSIDE
--- NOTE | 2020-12-23 06:03 | NUR ---
PT AWAKE, ADM 0600 MED AND PAIN MED PER MD ORDERS, SEE EMAR, PT PLACED ON CPM AT THIS TIME, DENIES FURTHER NEEDS, PT'S MOM AT BEDSIDE
--- NOTE | 2020-12-23 06:48 | NUR ---
PT RESTING WITH EYES CLOSED, RESP QUIET, NO DISTRESS NOTED, LEFT UNDISTURBED AT THIS TIME
[2020-12-23 07:25] LABS: BASOPHILS 0.5 % (0-2); EOSINOPHILS 2.4 % (0-7); HEMATOCRIT 35.4 % (36.0-48.0); HEMOGLOBIN 11.4 g/dL (12-16); IMMATURE GRANULOCYTES 0.1 % (0-5); LYMPHOCYTE ABS# 1.91 10x3/uL (1.18-3.74); LYMPHOCYTES 23.9 % (15-50); MCH 30.7 pg (26.0-34.0); MCHC 32.2 g/dL (31.0-37.0); MCV 95.4 fL (80.0-100.0); MEAN PLATELET VOLUME 9.5 fL (7.4-10.4); MONOCYTES 12.4 % (2-11); NEUTROPHIL ABS# 4.84 10x3/uL (1.56-6.13); NEUTROPHILS 60.7 % (40-80); PLATELET COUNT 288 10x3/uL (130-400); RBC 3.71 10x6/uL (4.00-5.40); RDW 14.9 % (11.5-14.5)
[2020-12-23 08:02] LABS: ALBUMIN 2.8 g/dL (3.4-5.0); ALKALINE PHOSPHATASE 38 U/L (30-120); ALT (SGPT) 30 U/L (10-68); BILIRUBIN - TOTAL 0.29 mg/dL (0.2-1.3); CALC OSMOLALITY 284 mosm/kg (275-300); CALCIUM 8.1 mg/dL (8.5-10.1); CARBON DIOXIDE 26.4 mmol/L (21.0-32.0); CHLORIDE - SERUM 109 mmol/L (98-107); CREATININE - SERUM 0.7 mg/dL (0.6-1.3); GLUCOSE 96 mg/dL (74-106); MAGNESIUM - SERUM 2.1 mg/dL (1.8-2.4); POTASSIUM - SERUM 3.8 mmol/L (3.5-5.1); PROTEIN - SERUM 5.5 g/dL (6.4-8.2); SODIUM 144 mmol/L (136-145); UREA NITROGEN 6 mg/dL (7-18); eGFR NON AFRICAN AMERICAN > 90 mL/min (90-120)
[2020-12-23 08:06] VITALS: BP 140/74
--- NOTE | 2020-12-23 10:29 | NUR ---
PATIENT CARE ASSUMED THIS AM AFTER REPORT TAKEN. MOTHER AT BEDSIDE AND QUESTIONS ANSWERED. PATIENT UP WITH PT AND DOING WELL, NO COMPLAINTS VOICED AND NO DISTRESS NOTED.
--- NOTE | 2020-12-23 11:37 | MORECARE ---
CASE MANAGEMENT DISCHARGE SUMMARY PATIENT: ADRIENNE RO UNIT: [id number] ADM DATE: 12/21/20 AGE: 55 : 65 SEX: F ROOM/BED: D.1208 AUTHOR: REA FAIRCHILD PHYSICIAN: REFERRING PHYSICIAN: TIFFANIE OSWALD MD DATE OF SERVICE: 12/23/20 Case Management Discharge Planning Summary COMMENTS ENTERED DATE: 12/22/20 14:34 CT COMMENT TYPE: Discharge Planning REVIEWER: Taiwo Singh CM met with patient to complete DC plan and to evaluate needs. Patient lives with family and has considerable support. Patient stated that her home is safe and has electricity and running water. Patient stated that the home has 2 steps and she manages them without difficulty. Patient stated that she has no problems paying for medications and she fills her medications at [facility] [place] on [address]. Patient stated that her primary care physician is Dr. Johnson. At discharge, the patient plans to return home and feels this is a safe discharge. CM discussed availability of home health, rehab services, and medical equipment. Patient declined SNF, IPR, and DME. Patient has a walker in her room and stated that she has a bedside commode at home. Patient stated that she wants to use [facility]. Clinical Documents faxed to [facility]. LAYNE signed and placed on chart. Patient voiced no other needs at this time and is satisfied with DC plan. Transportation provider at discharge will be with his brother Jesus. CM will continue to follow and will assist as needed with dc plans/needs. Appended by Taiwo Singh on 12/22/2020 14:44 CDT: Transportation provider at discharge will be with her mother, Ilsa Pizarro, . CM will continue to follow and will assist as needed with dc plans/needs. DCP REVIEW SUMMARY ANTICIPATED D/C DATE: EXPECTED LOS : CASE STATUS: DCP Initiated INITIAL REVIEW: 12/21/2020 INITIAL REVIEWER: Taiwo Singh FINAL DISCHARGE DISPOSITION: : FINAL REVIEWER: FINAL REVIEW DATE: DCP Focus Questions & Answers DCP Evaluation QUESTION: ANSWER Patient's current cognitive status: : *Oriented to person, place, situation, time and present Patient's ability to cope with chronic illness : d. No chronic illness Patient gives permission to discuss discharge plans with: (name, relationship and number) : mother, Ilsa Pizarro, Patient and/or caregiver agree upon recommended discharge plan? : Yes Family / Caregiver's ability to cope with chronic illness: : a. Adequate (ability to meet patient's medical needs, ensures patient attends medical appts.) Family / Caregiver's ability to cope with chronic illness: : a. Adequate (ability to meet patient's medical needs, ensures patient attends medical appts.) Physical Status: : Independent with ADL's Does the patient have the ability to pay for or attain post discharge needs / services? : Yes Functional screen assessment: : Basic needs can adequately be met by self Living Arrangements: : Home with Extended Family Equipment needed for post hospitalization: : None Is there a likelihood that the patient will require additional services to return to the preadmission environment? : No Baseline cognitive status: : *Oriented to person, place, situation, time and present Patient with capacity for self-care or can be cared for in same environment as prior to hospitalization? : Yes Physical environment modification needed / anticipated for discharge: : No Medication Management: : Patient states can read and understand medication labels Medication Management: : Patient states can afford medications Pharmacy name(s): : [facility] Does Patient have transportation to get home and to follow-up medical appointments when discharged from the hospital? : Yes Would patient like to participate in any Care Coordination programs (if applicable): : Not applicable Does the patient have electricity at home? : Yes Does the patient have running water in their house? : Yes Equipment in use: : Walker - Rolling Equipment in use: : Bedside Commode Mental health screen: : No mental health history DCP Re-evaluation QUESTION: ANSWER Would patient like to participate in any Care Coordination programs (if applicable): : Not applicable PATIENT: ADRIENNE RO ENCOUNTER: [id number] MEDICAL RECORD#: [id number] ADMISSION DATE: 12/21/2020 DISCHARGE DATE: ATTENDING MD: MAAURY: AGE: 55 MARITAL STATUS: S DC PLAN ID: [id number] FACILITY: [facility] PRINTED ON: 12/23/20 11:37 CT All edits/amendments must be made on the electronic document DICTATION DATE: 12/23/201136 PRODUCTION SUPPORT DEVELOPER: KATHIE 12/23/20 113 RPT#: [id number] DC DATE: STATUS: ADM IN [facility] [address] [place] [address] END OF REPORT
--- NOTE | 2020-12-23 13:59 | MORECARE ---
CASE MANAGEMENT DISCHARGE SUMMARY PATIENT: ADRIENNE RO UNIT: [id number] ADM DATE: 12/21/20 AGE: 55 : 65 SEX: F ROOM/BED: D.1208 AUTHOR: GURINDER,DOC PHYSICIAN: REFERRING PHYSICIAN: TIFFANIE OSWALD MD DATE OF SERVICE: 12/23/20 Case Management Discharge Planning Summary COMMENTS ENTERED DATE: 12/23/20 13:46 CT COMMENT TYPE: Discharge Planning REVIEWER: Cecile Cota Received DC orders. I called Andrés with [facility] and informed of DC and DC orders and med list faxed to [address] Home today with home health. ENTERED DATE: 12/22/20 14:34 CT COMMENT TYPE: Discharge Planning REVIEWER: Taiwo Singh CM met with patient to complete DC plan and to evaluate needs. Patient lives with family and has considerable support. Patient stated that her home is safe and has electricity and running water. Patient stated that the home has 2 steps and she manages them without difficulty. Patient stated that she has no problems paying for medications and she fills her medications at [facility] on [address]. Patient stated that her primary care physician is Dr. Johnson. At discharge, the patient plans to return home and feels this is a safe discharge. CM discussed availability of home health, rehab services, and medical equipment. Patient declined SNF, IPR, and DME. Patient has a walker in her room and stated that she has a bedside commode at home. Patient stated that she wants to use [facility]. Clinical Documents faxed to [facility]. LAYNE signed and placed on chart. Patient voiced no other needs at this time and is satisfied with DC plan. Transportation provider at discharge will be with his brother Jesus. CM will continue to follow and will assist as needed with dc plans/needs. Appended by Taiwo Singh on 12/22/2020 14:44 CDT: Transportation provider at discharge will be with her mother, Ilsa Pizarro, . CM will continue to follow and will assist as needed with dc plans/needs. DCP REVIEW SUMMARY ANTICIPATED D/C DATE: EXPECTED LOS : CASE STATUS: DCP Initiated INITIAL REVIEW: 12/21/2020 INITIAL REVIEWER: Taiwo Singh FINAL DISCHARGE DISPOSITION: : FINAL REVIEWER: FINAL REVIEW DATE: DCP Focus Questions & Answers DCP Evaluation QUESTION: ANSWER Patient's current cognitive status: : *Oriented to person, place, situation, time and present Patient's ability to cope with chronic illness : d. No chronic illness Patient gives permission to discuss discharge plans with: (name, relationship and number) : mother, Ilsa Pizarro, Patient and/or caregiver agree upon recommended discharge plan? : Yes Family / Caregiver's ability to cope with chronic illness: : a. Adequate (ability to meet patient's medical needs, ensures patient attends medical appts.) Family / Caregiver's ability to cope with chronic illness: : a. Adequate (ability to meet patient's medical needs, ensures patient attends medical appts.) Physical Status: : Independent with ADL's Does the patient have the ability to pay for or attain post discharge needs / services? : Yes Functional screen assessment: : Basic needs can adequately be met by self Living Arrangements: : Home with Extended Family Equipment needed for post hospitalization: : None Is there a likelihood that the patient will require additional services to return to the preadmission environment? : No Baseline cognitive status: : *Oriented to person, place, situation, time and present Patient with capacity for self-care or can be cared for in same environment as prior to hospitalization? : Yes Physical environment modification needed / anticipated for discharge: : No Medication Management: : Patient states can read and understand medication labels Medication Management: : Patient states can afford medications Pharmacy name(s): : [facility] [employer] [facility] Does Patient have transportation to get home and to follow-up medical appointments when discharged from the hospital? : Yes Would patient like to participate in any Care Coordination programs (if applicable): : Not applicable Does the patient have electricity at home? : Yes Does the patient have running water in their house? : Yes Equipment in use: : Walker - Rolling Equipment in use: : Bedside Commode Mental health screen: : No mental health history DCP Re-evaluation QUESTION: ANSWER Would patient like to participate in any Care Coordination programs (if applicable): : Not applicable PATIENT: ADRIENNE RO ENCOUNTER: [id number] MEDICAL RECORD#: [id number] ADMISSION DATE: 12/21/2020 DISCHARGE DATE: ATTENDING MD: AMAURY: AGE: 55 MARITAL STATUS: S DC PLAN ID: [id number] FACILITY: [facility] PRINTED ON: 12/23/20 13:59 CT All edits/amendments must be made on the electronic document DICTATION DATE: 12/23/201358 RETURNED MATERIALS INSPECTOR: KATHIE 12/23/20 135 RPT#: [id number] DC DATE: STATUS: ADM IN [facility] [address] [place] [address] END OF REPORT
--- NOTE | 2020-12-23 14:37 | NUR ---
PATIENT TO BE DISCHARGED HOME WITH MOTHER AND A FRIEND WILL PICK HER UP. DISCHARGE INSTRUCTIONS ABOUT MEDS, RETURN VISIT, AND WOUND CARE DISCUSSED. PATIENT SALINE LOCK DISCONTINUED AND ALL QUESTIONS ANSWERED FOR MOTHER AND PATIENT.
== END 2020-12-23 14:30 | disposition home health service (06) | DRG 467 ==
LOC: D.M3 12-21 05:25 → D.SDCHOLD 12-21 05:25 → D.M3 12-21 12:35
PROVIDERS: Family Medicine; Orthopaedic Surgery; ADMIT Orthopaedic Surgery; ATTEND Orthopaedic Surgery
PROC: 0SRD0J9 Replacement of Left Knee Joint with Synthetic Substitute, Cemented, Open Approach (ICD-10-PCS; 2020-12-21)
PROC: 0SPD0JZ Removal of Synthetic Substitute from Left Knee Joint, Open Approach (ICD-10-PCS; principal; 2020-12-21 07:30)
DX: T84.84XA Pain due to internal orthopedic prosthetic devices, implants and grafts, initial encounter (principal); D62 Acute posthemorrhagic anemia; Y83.9 Surgical procedure, unspecified as the cause of abnormal reaction of the patient, or of later complication, without mention of misadventure at the time of the procedure; I10 Essential (primary) hypertension; E03.9 Hypothyroidism, unspecified